=== PATIENT | male | born 1940 | race Caucasian/White ===

== ENCOUNTER 2018-12-02 19:30 | Inpatient (IN) | payer MEDICARE ==
[~2018-12-02] VITALS: Ht 170.2 cm; Wt 93.4 kg
--- NOTE | 2018-12-02 18:50 | NUR ---
PT ARRIVED TO FLOOR VIA EMS. PT VITALS STABLE. PT IN 10/10 PAIN AT BILAT LOWER EXTREMITIES. PT RR EVEN AND UNLABORED. REPORT RECIEVED FROM PERRY YANG. PT SON AT BEDSIDE. BED LOW CALL LIGHT WITHIN REACH. WILL CONTINUE TO MONITOR.
[2018-12-02 20:00] VITALS: BP 109/48
--- NOTE | 2018-12-02 20:06 | NUR ---
CALLED BHASKAR ALARCON FOR ORDERS ON MEDICATION AND INSULIN. LOW RESISTANCE SCALE ORDERED. BED LOW CALL LIGHT WITHIN REACH. WILL CONTINUE TO MONITOR.
[2018-12-02] MEDS ORDERED: RENVELA800 MG PO (20:28)
[2018-12-02] MEDS ORDERED: ENTRESTO 24 MG1 EACH PO (20:28)
[2018-12-02] MEDS ORDERED: GABAPENTIN100 MG PO (20:29)
[2018-12-02] MEDS ORDERED: LIPITOR80 MG (20:31)
[2018-12-02] MEDS ORDERED: PACERONE200 MG (20:32)
[2018-12-02] MEDS ORDERED: NEPHRO-VITE RX1 TAB PO (20:32)
[2018-12-02] MEDS ORDERED: PROTONIX40 MG PO (20:32)
[2018-12-02] MEDS ORDERED: COREG 3.1253.125 MG PO (20:33)
[2018-12-02] MEDS ORDERED: ASPIRIN81 MG PO (20:33)
[2018-12-02] MEDS ORDERED: HUMULIN N100 U/ML SQ (20:35)
[2018-12-02] MEDS ORDERED: HYDROCODON-ACE1 EAC7 PO (20:37)
[2018-12-02] MEDS ORDERED: HYDROCODON-ACE1 EAC2 PO (20:37)
--- NOTE | 2018-12-02 22:58 | NUR ---
PT COMPLAING OF 10/10 PAIN LEFT AND RIGHT FOOT. PT ALERT AND ORIENTED. PT MAKING MOANING SOUNDS. BRD LOW CALL LIGHT WITHIN REACH. WILL CONTINUE TO MONITOR.
--- NOTE | 2018-12-02 23:26 | NUR ---
BASHIR ALARCON Apn CONCERNING PAIN IN PT'S 05/20 PAIN AT BILAT TOE AMPUTATION SITE. NEW PAIN MED ORDERED. SEE OCT.
--- NOTE | 2018-12-02 23:33 | NUR ---
CALLED BHASKAR ALARCON. PT PAIN NOT RELIEVED. NEW PAIN MED ORDER. SEE MAR. WILL CONTINUE TO MONITOR.
[2018-12-03 00:30] VITALS: BP 112/50
--- NOTE | 2018-12-03 02:05 | NUR ---
PT RESTLESS BUT RESTING IN BED. RR EVEN AND UNLABORED. BED LOW CALL LIGHT WITHIN REACH. WILL CONTINUE TO MONITOR.
[2018-12-03 04:14] VITALS: BP 109/48; BMI 33.5
[2018-12-03 04:30] VITALS: BP 129/71
--- NOTE | 2018-12-03 04:51 | NUR ---
REMOVED PT'S DRESSING FROM BILAT FEET. BOTH LEFT AND RIGHT SIDE FEET WHERE TOES AMPUTATED STICHES STILL INTACT. RED, HOT, SWOLLEN, AND NECROTIC IN APPERANCE. THERE IS A FOUL SMELL COMING FROM FEET. PT COMPLAINS OF CONSTANT 9/10, 10/10 PAIN IN LOWER EXTREMITIES. RE-DRESSED WITH NON ADHESIVE XEROFORM WITH 4X4 OVER THAT. THEN WRAPPED WITH CURLEX. WILL CONTINUE TO MONITOR.
--- NOTE | 2018-12-03 05:13 | NUR ---
ADMIT ASSESSMENT COMPLETE. AGREE WITH ASSESSMENT PLACED BY RN
[2018-12-03 05:53] LABS: BASOPHILS 0.2 % (0-2); EOSINOPHILS 1.6 % (0-7); HEMOGLOBIN 8.6 g/dL (13.5-17.5); IMMATURE GRANULOCYTES 0.3 % (0-5); LYMPHOCYTES 9.1 % (15-50); MCHC 31.9 g/dL (31.0-37.0); MCV 87.9 fL (80.0-100.0); NEUTROPHILS 78.8 % (40-80); PLATELET COUNT 255 10x3/uL (130-400); RBC 3.07 10x6/uL (4.20-6.10); RDW 15.2 % (11.5-14.5); WBC 10.3 10x3/uL (4.8-10.8)
--- NOTE | 2018-12-03 07:28 | NUR ---
MORNING ROUNDS MADE. PT LAYING IN BED RESTING. ALERT TO SELF. REORIENTED PT TO PLACE AND TIME. RM AIR. DRSG TO BLE. PT STATED HE NEED THE BEDPAN. ASSISTED PT ONTO BED GASTELUM. IV TO R HAND, 20 G SL. MEPELEX TO BUTTOCKS. DENIES PAIN AT THIS TIME. LUNGS CLEAR. HEART RRR. BED LOWERED AND LOCKED. CL IN REACH. NON SKID SOCKS ON. YELLOW GOWN ON. BED LOWERED AND LOCKED. CL IN REACH. WILL CTM.
[2018-12-03 08:33] VITALS: BP 109/49
[2018-12-03 09:50] LABS: ALBUMIN 1.8 g/dL (3.4-5.0); BILIRUBIN - TOTAL 0.3 mg/dL (0.2-1.3); CALCIUM 9.4 mg/dL (8.5-10.1); CARBON DIOXIDE 21.7 mmol/L (21.0-32.0); CREATININE - SERUM 9.1 mg/dL (0.6-1.3); POTASSIUM - SERUM 4.7 mmol/L (3.5-5.1); PROTEIN - SERUM 6.5 g/dL (6.4-8.2)
--- NOTE | 2018-12-03 09:55 | NUR ---
PT SITTING UP IN BED. VAN STARTED TO IV IN R HAND. DRSG C/D/I. PATENT, NO REDNESS, NO EDEMA. TURNED PT TO L SIDE. PT DENIES PAIN AT THIS TIME. BED LOWERED AND LOCKED. CL IN REACH. WILL CTM.
--- NOTE | 2018-12-03 10:46 | NUR ---
PT C/O PAIN IN FEET OF A 07/20. NORCO GIVEN. PT SAT UP IN HIGH FOWLERS TO TAKE NORCO. NO FURTHER CONCERNS AT THIS TIME. SR UP X 3.
--- NOTE | 2018-12-03 10:48 | NUR ---
PT TO HD VIA BED. IV TO R HAND SL. ORANGE CAP IN PLACE.
--- NOTE | 2018-12-03 12:43 | NUR ---
I CONCUR WITH THE ASSESSMENT PERFORMED BY ALESIA AMADOR
[2018-12-03 13:31] VITALS: Ht 170.2 cm; Wt 93.4 kg
[2018-12-03 15:52] VITALS: BP 95/40
--- NOTE | 2018-12-03 16:28 | NUR ---
PT REFUSES TO WEAR SCD
--- NOTE | 2018-12-03 16:44 | NUR ---
PT GIVEN NORCO FOR PAIN OF 10/10 IN BLE.
--- NOTE | 2018-12-03 17:51 | NUR ---
SPOKE WITH PT SON ABOUT PT STATUS AND CARE TODAY. SON STATED THAT THEY WOULD LIKE TO TAKE PT TO [facility] AFTER DC. NO FURTHER CONCERNS AT THIS TIME. WILL CTM.
[2018-12-03 20:00] VITALS: BP 101/50
--- NOTE | 2018-12-03 21:00 | NUR ---
ROUNDS COMPLETED, VSS, AAOX2. NO S/S OF RR DISTRESS. DRESSING ON R/L TOES C/D/I. PT HAD 1 INCONTINENT BM. HELP CLEAN PT AND PROVIDED FRESH SHEETS. PT CURRENTLY RESTING IN BED. DENIES ANY FURTHER NEEDS AT THIS TIME. WILL CPOC.
[2018-12-04 00:20] VITALS: BP 98/52
--- NOTE | 2018-12-04 04:59 | NUR ---
PT C/O PAIN IN HIS RIGHT AND LEFT TOES. 1 TAB NORCO GIVEN AT THIS TIME. PT RESTING IN BED WITH EYES OPEN. WILL CTM.
[2018-12-04 05:00] VITALS: BP 124/54
[2018-12-04 06:17] LABS: ANION GAP 15.3 mmol/L (8-16); CALCIUM 9.2 mg/dL (8.5-10.1); CARBON DIOXIDE 24.9 mmol/L (21.0-32.0); CREATININE - SERUM 7.9 mg/dL (0.6-1.3); POTASSIUM - SERUM 4.2 mmol/L (3.5-5.1)
[2018-12-04 06:18] LABS: HEMATOCRIT 26.2 % (42.0-54.0); HEMOGLOBIN 8.3 g/dL (13.5-17.5); LYMPHOCYTES 9.5 % (15-50); MCHC 31.7 g/dL (31.0-37.0); MCV 88.5 fL (80.0-100.0); MEAN PLATELET VOLUME 8.8 fL (7.4-10.4); NEUTROPHILS 79.8 % (40-80); PLATELET COUNT 246 10x3/uL (130-400); RBC 2.96 10x6/uL (4.20-6.10); RDW 14.7 % (11.5-14.5); WBC 8.6 10x3/uL (4.8-10.8)
[2018-12-04 09:10] VITALS: BP 130/67
--- NOTE | 2018-12-04 09:59 | NUR ---
UNABLE TO OBTAIN 20 GUAGE PIV FOR CTA AT THIS TIME. WILL TRY AGAIN AND PT REFUSED ANY FURTHER STICKS AFTER 2 ATTEMPTS. BROUGHT PT DOWN TO DIALYSIS VIA BED. NO CURRENT NEEDS WILL CTM.
--- NOTE | 2018-12-04 10:25 | NUR ---
PT IN EXCRUITATING PAIN IN BILAT FEET. PAGED PRIMARY AND OBTAINED PRN PAIN MEDICATION ORDER. WILL BRING DOWN TO DIALYSIS AT THIS TIME.
--- NOTE | 2018-12-04 13:52 | NUR ---
PT BACK FROM DIALYSIS RESTING QUIETLY IN BED. PT REFUSED LUNCH AND STATES HE IS NOT HUNGRY. SON IS AT BEDSIDE AND PROVIDED A LOT OF INFORMATION ABOUT HIS PROCEDURE RECENTLY. OBTAINED CONSENT TO GET RECORDS AND WILL GO FROM THERE. BILAT FEET ARE UNWRAPPED, WOUND CARE NURSE AT BEDSIDE TO ASSESS AND PROVIDE NEW DRSG ORDERS. NO CURRENT NEEDS AT THIS TIME. CL IN REACH, BED IN LOWEST, SIDE RAILS X2. WILL CTM.
--- NOTE | 2018-12-04 14:48 | NUR ---
Nutrition Follow Up: Reviewed chart Renal ADA diet with poor po intake Pt ate 25% of breakfast and it appears pt is not eating lunch BG [address] following
--- NOTE | 2018-12-04 15:12 | NUR ---
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 The sutures are still in place. He has a follow up visit on 12/10/18 for suture removal. Current treatment to the amputation sites and feet is Santyl ointment. Recommend continuing the Santyl. Both feet, amputation sites and toes are black. There is no odor. Pt also has a stage 3 pressure injury on sacrum, measuring 5cm x 3cm. It is covered with yellow slough and the edges are pink. There are 3 small stage 2 pressure injuries on the left side of coccyx. Recommended the use of calmoseptine cream instead of covering ulcers with mepilex due to the high risk of the adhesive in bandage tearing his fragile skin. Also recommend: -Turn/reposition q 2 hours (positioning off his sacrum/coccyx) -Calmoseptine cream to perineal area and to bottom twice/day and with each incontinent episode -Bridge heels off of the mattress/pillows (float them) -Dressing changes every other day to feel/toes -Protect bony prominences -Skin assessments q shift and when providing personal care Wound care will monitor.
--- NOTE | 2018-12-04 15:23 | NUR ---
WOUND CARE NURSE AT BEDSIDE WITH ME TO FULLY ASSESS ALL WOUNDS. PT HAS MULTIPLE STAGE 3 PRESSURE ULCERS ON HIS BOTTOM, SEE WOUND CARE NOTE FOR FURTHER DETAIL. PT INCONTINENT OF BOWEL AND BLADDER, COMPLETE BED CHANGE PROVIDED AND LINENS REPLACED, NEW GOWN PROVIDED. REPOSITIONED PT UP IN BED FOR COMFORT AND TURNED HIM ONTO HIS L.SIDE TO RELIEVE PRESSURE. PT VOICED THANKS AND IS JUST VERY TIRED AND WANTS TO REST. WILL DRESS BILAT FEET INCISIONS WHEN SANTYL OINTMENT IS HERE FROM PHARMACY. NO IMMEDIATE NEEDS AT THIS TIME. CL IN REACH, BED IN LOWEST, SIDE RAILS X2. WILL CTM.
--- NOTE | 2018-12-04 17:01 | NUR ---
STILL WAITING ON SANTYL OINTMENT. PT LYING BACK IN BED RESTING QUIETLY. PT IS STILL NOT HUNGRY AND REFUSED TO EAT ANYTHING SO I HELD HIS INSULIN R/T WORRIED ABOUT HIM DROPPING. FSBS 160. WILL CTM.
[2018-12-04 17:05] VITALS: BP 99/40
--- NOTE | 2018-12-04 17:46 | MORECARE ---
CASE MANAGEMENT DISCHARGE SUMMARY PATIENT: BILL LALA UNIT: [id number] ADM DATE: 12/02/18 AGE: 78 : 39 SEX: M ROOM/BED: D.2138 AUTHOR: DAT MCGUIRE PHYSICIAN: REFERRING PHYSICIAN: EDIS ZHANG MD DATE OF SERVICE: 12/04/18 Discharge Plan Patient Name: BILL LALA [facility] [facility] 1940 Planned Disposition: Assisted Facility Anticipated Discharge Date: Discharge Date: Expected LOS: Initial Reviewer: [id number] Initial Review Date: 12/04/2018 Generated: 12/04/18 6:45 pm DCPIA - Discharge Planning Initial Assessment Updated by [email or web address]: Kvng Wu on 12/04/18 5:43 pm * Is the patient Alert and Oriented? Yes * Preadmission Environment Home with Family * ADLs Partial Dependent * Partial ADLs (Assistance needed) Ambulation Bathing Dressing Medication Management Toileting Transfers * Equipment Wheelchair * Other Equipment NO MEDICAL EQUIPMENT P[ROVIDER PREFERENCE * List name and contact numbers for known caregivers / representatives who currently or will assist patient after discharge: TIANA LALA, SON, PT'S SPOUSE, ED, VEHICLE SERVICE ATTENDANT CARE RESIDENT AT [facility] * Verbal permission to speak to the caregivers and representatives has been obtained from the patient. Yes * Community resources currently utilized None * Please name any agencies selected above. NONE * Additional services required to return to the preadmission environment? Yes * Can the patient safely return to the preadmission environment? No * Has this patient been hospitalized within the prior 30 days at any hospital? Yes Patient Name: BILL LALA Page [id number] at 1746 All edits/amendments must be made on the electronic document DICTATION DATE: 12/04/181744 MECHANICAL EQUIPMENT SALES ENGINEER: PIERRE 12/04/181744 RPT#: [id number] DC DATE: STATUS: ADM IN [facility] [address] [place] [address] END OF REPORT
--- NOTE | 2018-12-04 17:54 | MORECARE ---
CASE MANAGEMENT DISCHARGE SUMMARY PATIENT: BILL LALA UNIT: [id number] ADM DATE: 12/02/18 AGE: 78 : 39 SEX: M ROOM/BED: D.9428 AUTHOR: SHAYLA,DOC PHYSICIAN: REFERRING PHYSICIAN: EDIS ZHANG MD DATE OF SERVICE: 12/04/18 Discharge Plan Patient Name: BILL LALA Facility: [facility]:[place] : 1940 Planned Disposition: Mcfp Facility Anticipated Discharge Date: Discharge Date: Expected LOS: Initial Reviewer: [email or web address] Initial Review Date: 12/04/2018 Generated: 12/04/18 6:54 pm Comments DCP- Discharge Planning Updated by [email or web address]: Kvng Wu on 12/04/18 4:[address] Patient Name: BILL LALA Admission Status: Elective Accout number: [id number] Admission Date: 12-02-2018 : 1940 Admission Diagnosis: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 CM MET WITH PT IN ROOM TO DISCUSS DISCHARGE PLANNING AND NEEDS. PT REPORTS HE WAS LIVING AT HOME WITH FAMILY. PT STATES HIS IS IN COUNTY SHERIFF CARE AT [facility]. PT WANTS TO GO TO [facility] AND WILL HOPEFULLY GET A ROOM WITH HIS THERE. PT IS ON DIALYSIS ALREADY AT [facility], MWF, 1015, FAMILY HAS BEEN TRANSPORTING. PROVIDER LIST GIVEN, PT IS UNABLE TO SIGN CHOICE LETTER, COMPLETED BY CM FOR [facility]. CM CALLED AND LEFT MESSAGE FOR NICOLE OF [facility], ; FIFTH GRADE TEACHER REPORTED THEY HAVE BEEN CONSIDERING PT AND HAD RECEIVED REHAB REFERRAL FROM [facility]. CM FAXED REFERRAL TO [facility] AT [phone]. CM LATER MET PT'S SON IN ROOM, TIANA LALA, WHO VERIFIED PLAN FOR PT TO GO TO REHAB AT [facility], TRANSITION TO RETIREMENT CARE PT'S SPOUSE LIVES IN FACILITY. CM WAITING ADMISSION DETERMINATION FROM [facility] FOR REHAB PLACEMENT. Nuclear Medicine Physician: Kvng Wu DCPIA - Discharge Planning Initial Assessment Updated by [id number]: Kvng Wu on 12/04/18 5:49 pm * Is the patient Alert and Oriented? Yes * Preadmission Environment Home with Family * ADLs Partial Dependent * Partial ADLs (Assistance needed) Ambulation Bathing Dressing Medication Management Toileting Transfers * Equipment Wheelchair * Other Equipment NO MEDICAL EQUIPMENT P[ROVIDER PREFERENCE * List name and contact numbers for known caregivers / representatives who currently or will assist patient after discharge: TIANA LALA, SON, PT'S SPOUSE, ED, COUNTY SHERIFF CARE RESIDENT AT [facility] * Verbal permission to speak to the caregivers and representatives has been obtained from the patient. Yes * Community resources currently utilized Other * Please name any agencies selected above. OUTPATIENT DIALYSIS, [facility], MWF, 1015 HOURS. * Additional services required to return to the preadmission environment? Yes * Can the patient safely return to the preadmission environment? No * Has this patient been hospitalized within the prior 30 days at any hospital? Yes External Providers [facility] Next Contact Date: 12/04/2018 Service Request Date: Service Type: Resolution: Reviewer: Comments: Last DP export: 12/04/18 4:45 p Patient Name: BILL LALA Page [phone] at 1754 All edits/amendments must be made on the electronic document DICTATION DATE: 12/04/181752 PRINCIPAL ELECTRICAL ENGINEER: PIERRE 12/04/181752 RPT#: [id number] DC DATE: STATUS: ADM IN [facility] [address] [place] [address] END OF REPORT
[2018-12-04 20:00] VITALS: BP 97/48
--- NOTE | 2018-12-04 20:20 | NUR ---
PT LAYING IN BED RESTING. RR EVEN AND UNLABORED. BED LOW CALL LIGHT WITHIN REACH. WILL CONTINUE TO MONITOR.
--- NOTE | 2018-12-04 23:51 | NUR ---
PT RESTING ON SIDE IN BED. RR EVEN AND UNLABORED. BED LOW CALL LIGHT WITHIN REACH. WILL CONTINUE TO MONITOR.
--- NOTE | 2018-12-05 01:59 | NUR ---
PT MOANING AND COMPLAING OF 10/10 PAIN. PRN PAIN MED GIVED. FEET ELEVATED ON PILLOWS. BED LOW CALL LIGHT WITHIN REACH. WILL CONTINUE TO MONITOR.
[2018-12-05 05:35] LABS: BASOPHILS 0.1 % (0-2); EOSINOPHILS 0.8 % (0-7); HEMATOCRIT 25.7 % (42.0-54.0); HEMOGLOBIN 7.9 g/dL (13.5-17.5); IMMATURE GRANULOCYTES 0.2 % (0-5); LYMPHOCYTES 8.5 % (15-50); MCH 27.1 pg (26.0-34.0); MCHC 30.7 g/dL (31.0-37.0); MEAN PLATELET VOLUME 8.7 fL (7.4-10.4); MONOCYTES 8.1 % (2-11); NEUTROPHILS 82.3 % (40-80); PLATELET COUNT 204 10x3/uL (130-400); RBC 2.92 10x6/uL (4.20-6.10); RDW 15.2 % (11.5-14.5); WBC 10.3 10x3/uL (4.8-10.8)
[2018-12-05 06:00] LABS: ANION GAP 16.7 mmol/L (8-16); CALCIUM 9.4 mg/dL (8.5-10.1); CARBON DIOXIDE 24.4 mmol/L (21.0-32.0); CREATININE - SERUM 6.6 mg/dL (0.6-1.3); PHOSPHOROUS 6.3 mg/dL (2.5-4.9); POTASSIUM - SERUM 4.1 mmol/L (3.5-5.1); VANCOMYCIN - RANDOM 7.6 ug/mL (10.0-20.0)
[2018-12-05 09:08] VITALS: BP 90/37
--- NOTE | 2018-12-05 10:21 | NUR ---
DR. GLOVER CANCELED CT SCAN FOR TODAY AND IS GOING TO DO IT TOMORROW SINCE PT IS GETTING IV CONTRAST AND WILL HAVE HD FRIDAY.
[2018-12-05 11:31] VITALS: BP 102/55
--- NOTE | 2018-12-05 11:45 | NUR ---
PT RECEVIED BED BATH BY BOOKBINDER CHIEF. CALMOSEPTINE AND MEPILEX PLACED ON PT'S BUTTOCK.
--- NOTE | 2018-12-05 14:19 | NUR ---
I have reviewed this patient and I concur with the Shift Assessment completed by the Licensed Practical Nurse today this shift.
--- NOTE | 2018-12-05 14:27 | NUR ---
PT LYING IN BED. EYES CLOSED. CHEST RISING AND FALLING. BED LOW. CL IN REACH.
[2018-12-05 15:30] VITALS: BP 93/44
--- NOTE | 2018-12-05 19:20 | NUR ---
PT IN BED RESTING. EVEN AND UNLABORED RESPIRATIONS NOTED.
[2018-12-05 20:00] VITALS: BP 93/48
[2018-12-06] VITALS: BP 92/39
[2018-12-06 03:00] VITALS: BP 93/55
--- NOTE | 2018-12-06 03:02 | NUR ---
I have reviewed this patient and I concur with the Shift Assessment completed by the Licensed Practical Nurse today this shift.
--- NOTE | 2018-12-06 03:55 | NUR ---
COMPLETE LINEN CHANGE AT THIS TIME.
[2018-12-06 05:26] LABS: BASOPHILS 0.3 % (0-2); EOSINOPHILS 3.7 % (0-7); HEMATOCRIT 26.7 % (42.0-54.0); HEMOGLOBIN 8.2 g/dL (13.5-17.5); IMMATURE GRANULOCYTES 0.3 % (0-5); LYMPHOCYTES 9.4 % (15-50); MCHC 30.7 g/dL (31.0-37.0); MCV 87.8 fL (80.0-100.0); MONOCYTES 8.5 % (2-11); NEUTROPHILS 77.8 % (40-80); PLATELET COUNT 228 10x3/uL (130-400); RBC 3.04 10x6/uL (4.20-6.10); RDW 15.3 % (11.5-14.5); WBC 9.3 10x3/uL (4.8-10.8)
[2018-12-06 05:43] LABS: ANION GAP 16.6 mmol/L (8-16); CALCIUM 9.3 mg/dL (8.5-10.1); CARBON DIOXIDE 26.4 mmol/L (21.0-32.0); CREATININE - SERUM 7.7 mg/dL (0.6-1.3)
--- NOTE | 2018-12-06 07:00 | NUR ---
RECEIVED REPORT. ASSUMED CARE OF PATIENT. RESTING WITH EYES CLOSED. EASILTY AROUSED. RESP EVEN AND UNLABORED. NO DISTRESS. CALL LIGHT WITHIN REACH.
--- NOTE | 2018-12-06 07:52 | NUR ---
PATIENT LEFT UNIT VIA BED FOR CTA OF LOWER EXTREMITIES AT 0745. NO DISTRESS UPON LEAVING UNIT.
--- NOTE | 2018-12-06 08:10 | NUR ---
PATIENT RETURNED TO UNIT VIA BED FROM CTA OF LOWER EXTREMITIES. NO DISTRESS. TOLERATED CTA WELL PER BOTTOM FINISHER.
[2018-12-06 08:32] VITALS: BP 102/50
--- NOTE | 2018-12-06 11:31 | NUR ---
FSBS 172. 2 UNITS HUMULIN ADMINISTERED PER SLIDING SCALE. NO DISTRESS. TURNED AND REPOSITIONED. CALL LIGHT WITHIN REACH.
--- NOTE | 2018-12-06 11:35 | NUR ---
MEDICATED FOR FOOT PAIN. NO DISTRESS.
[2018-12-06 12:27] VITALS: BP 145/69
--- NOTE | 2018-12-06 14:58 | NUR ---
WOUND CARE TO COCCYX COMPLETE. DRY DRESSING NOW INTACT. COMPLETE LINEN CHANGE AND PATIENT REPOSITIONED. NO DISTRESS. PATIENT NOW HAS VISITORS AT BEDSIDE.
[2018-12-06 15:58] VITALS: BP 126/51
--- NOTE | 2018-12-06 16:30 | NUR ---
FSBS 134. NO INSULIN ADMINISTERED PER SLIDING SCALE.
--- NOTE | 2018-12-06 19:11 | NUR ---
AWAKE IN BED AND I ASSISTED WITH COMFORT AND PROPPED LOWER EXTREMITIES ON PILLOWS. YELLOW GOWN IN PLACE AND BED IS LOW AND LOCKED PUT CALL LIGHT BACK IN REACH. LCTA AND IV X2 WNL...DRSG IS INTACT ON BOTH FEET WHERE TOES ARE MISSING
[2018-12-06 20:26] VITALS: BP 108/67
--- NOTE | 2018-12-07 01:04 | NUR ---
DRSG CHANGE TO SACREAL AREA DO TO SOILED BANDAGE
[2018-12-07 01:17] VITALS: BP 99/67
--- NOTE | 2018-12-07 03:19 | NUR ---
I have reviewed this patient and I concur with the Shift Assessment completed by the Licensed Practical Nurse today this shift.
[2018-12-07 04:45] LABS: BASOPHILS 0.2 % (0-2); EOSINOPHILS 3.5 % (0-7); HEMATOCRIT 25.4 % (42.0-54.0); HEMOGLOBIN 7.9 g/dL (13.5-17.5); IMMATURE GRANULOCYTES 0.2 % (0-5); LYMPHOCYTES 10.2 % (15-50); MCH 27.1 pg (26.0-34.0); MCHC 31.1 g/dL (31.0-37.0); MCV 87.3 fL (80.0-100.0); MEAN PLATELET VOLUME 8.9 fL (7.4-10.4); MONOCYTES 9.3 % (2-11); NEUTROPHILS 76.6 % (40-80); PLATELET COUNT 240 10x3/uL (130-400); RBC 2.91 10x6/uL (4.20-6.10); RDW 15.4 % (11.5-14.5); WBC 10.9 10x3/uL (4.8-10.8)
[2018-12-07 04:51] LABS: ANION GAP 14.7 mmol/L (8-16); CALCIUM 9.4 mg/dL (8.5-10.1); CARBON DIOXIDE 26.6 mmol/L (21.0-32.0); CREATININE - SERUM 8.6 mg/dL (0.6-1.3); POTASSIUM - SERUM 4.3 mmol/L (3.5-5.1); VANCOMYCIN - RANDOM 6.7 ug/mL (10.0-20.0)
[2018-12-07 05:55] VITALS: BP 103/50
[2018-12-07 08:04] LABS: INR 1.21 (0.85-1.17); PROTIME 14.8 SECONDS (11.6-15.0)
[2018-12-07 08:08] VITALS: BP 113/69
--- NOTE | 2018-12-07 10:34 | NUR ---
RECEIVED CALL FROM PATIENT'S SON TIANA LALA. EXPLAINED THAT AN ARTERIOGRAM HAD BEEN ORDERED HE STATES THERE WILL BE NO PROCEDURE CONCERNING PT'S LEGS IF HE NEEDS FURTHER SERVICES CONCERNING THIS HE WILL TAKE PT BACK TO [place] PT'S PRIMARY NURSE AND RADIOLOGY NOTIFIED
[2018-12-07 12:08] VITALS: BP 99/51
[2018-12-07 22:04] VITALS: BP 99/42
[2018-12-08 00:04] VITALS: BP 91/40
--- NOTE | 2018-12-08 04:28 | NUR ---
I have reviewed this patient and I concur with the Shift Assessment completed by the Licensed Practical Nurse today this shift.
[2018-12-08 05:44] LABS: BASOPHILS 0.2 % (0-2); EOSINOPHILS 1.8 % (0-7); HEMATOCRIT 26.6 % (42.0-54.0); HEMOGLOBIN 8.2 g/dL (13.5-17.5); IMMATURE GRANULOCYTES 0.3 % (0-5); LYMPHOCYTES 9.9 % (15-50); MCH 27.1 pg (26.0-34.0); MCHC 30.8 g/dL (31.0-37.0); MCV 87.8 fL (80.0-100.0); MEAN PLATELET VOLUME 8.9 fL (7.4-10.4); MONOCYTES 10.3 % (2-11); NEUTROPHILS 77.5 % (40-80); PLATELET COUNT 263 10x3/uL (130-400); RBC 3.03 10x6/uL (4.20-6.10); RDW 15.5 % (11.5-14.5); WBC 10.9 10x3/uL (4.8-10.8)
[2018-12-08 05:55] VITALS: BP 114/64
[2018-12-08 06:42] LABS: ANION GAP 20.6 mmol/L (8-16); CALCIUM 9.3 mg/dL (8.5-10.1); CARBON DIOXIDE 23.4 mmol/L (21.0-32.0); PHOSPHOROUS 5.6 mg/dL (2.5-4.9)
[2018-12-08 06:45] LABS: CREATININE - SERUM 6.1 mg/dL (0.6-1.3)
--- NOTE | 2018-12-08 07:16 | NUR ---
FSBS 200 7 UNITS OF NPH GIVEN PER SS. 2 UNITS OF REGULAR GIVEN PER SS.
[2018-12-08 07:42] VITALS: BP 125/63
--- NOTE | 2018-12-08 08:57 | NUR ---
PULLED PATIENT UP AGAIN IN BED, CONTINUES TO SCOOT HIMSELF DOWN IN BED. AM MEAL SETUP FOR PATIENT. ENCOURAGED PATEINT TO EAT. CALL LIGHT WITHIN REACH. NO DISTRESS.
[2018-12-08] MEDS ORDERED: HUMULIN N100 U/ML SC (09:09)
[2018-12-08] MEDS ORDERED: HUMULIN R100 U/ML SC (09:09)
[2018-12-08] MEDS ORDERED: SANTYL30 GM TOPICAL (09:10)
[2018-12-08] MEDS ORDERED: CALMOSEPTINE OI71 GM TOPICAL (09:10)
[2018-12-08] MEDS ORDERED: FLORAJEN3 CAPS460 MG PO (09:10)
[2018-12-08] MEDS ORDERED: MIDODRINE HCL2.5 MG PO (09:11)
[2018-12-08] MEDS ORDERED: Retacrit SC (09:11)
[2018-12-08 10:14] LABS: FOLATE (FOLIC ACID) - SERUM >20.0 ng/mL (>3.0)
--- NOTE | 2018-12-08 10:58 | MORECARE ---
CASE MANAGEMENT DISCHARGE SUMMARY PATIENT: BILL LALA UNIT: [id number] ADM DATE: 12/02/18 AGE: 78 : 39 SEX: M ROOM/BED: D.2298 AUTHOR: DAT MCGUIRE PHYSICIAN: REFERRING PHYSICIAN: EDIS ZHANG MD DATE OF SERVICE: 12/08/18 Discharge Plan Patient Name: BILL LALA Facility: [facility]:[place] : 1940 Planned Disposition: Home Anticipated Discharge Date: 12/08/18 Discharge Date: Expected LOS: 6 Initial Reviewer: [id number] Initial Review Date: 12/04/2018 Generated: 12/08/18 11:57 am Comments DCP- Discharge Planning Updated by [email or web address]: Kvng Wu on 12/04/18 4:[address] Patient Name: BILL LALA Admission Status: Elective Accout number: [id number] Admission Date: 12-02-2018 : 1940 Admission Diagnosis: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 CM MET WITH PT IN ROOM TO DISCUSS DISCHARGE PLANNING AND NEEDS. PT REPORTS HE WAS LIVING AT HOME WITH FAMILY. PT STATES HIS IS IN RETIREMENT CARE AT [facility]. PT WANTS TO GO TO [facility] AND WILL HOPEFULLY GET A ROOM WITH HIS THERE. PT IS ON DIALYSIS ALREADY AT [facility], MWF, 1015, FAMILY HAS BEEN TRANSPORTING. PROVIDER LIST GIVEN, PT IS UNABLE TO SIGN CHOICE LETTER, COMPLETED BY CM FOR [facility]. CM CALLED AND LEFT MESSAGE FOR NICOLE OF [facility], ; SUSPENDER MAKER REPORTED THEY HAVE BEEN CONSIDERING PT AND HAD RECEIVED REHAB REFERRAL FROM [facility], [place]. CM FAXED REFERRAL TO [facility] AT [phone]. CM LATER MET PT'S SON IN ROOM, TIANA LALA, WHO VERIFIED PLAN FOR PT TO GO TO REHAB AT [facility], TRANSITION TO RETIREMENT CARE PT'S SPOUSE LIVES IN FACILITY. CM WAITING ADMISSION DETERMINATION FROM [facility] FOR REHAB PLACEMENT. Fishing Tackle Repairer: Kvng Wu DCPIA - Discharge Planning Initial Assessment Updated by RYLEY: Kvng Wu on 12/04/18 5:49 pm * Is the patient Alert and Oriented? Yes * Preadmission Environment Home with Family * ADLs Partial Dependent * Partial ADLs (Assistance needed) Ambulation Bathing Dressing Medication Management Toileting Transfers * Equipment Wheelchair * Other Equipment NO MEDICAL EQUIPMENT P[ROVIDER PREFERENCE * List name and contact numbers for known caregivers / representatives who currently or will assist patient after discharge: TIANA LALA, SON, PT'S SPOUSE, ED, RETIREMENT CARE RESIDENT AT [facility] * Verbal permission to speak to the caregivers and representatives has been obtained from the patient. Yes * Community resources currently utilized Other * Please name any agencies selected above. OUTPATIENT DIALYSIS, [facility], MWF, 1015 HOURS. * Additional services required to return to the preadmission environment? Yes * Can the patient safely return to the preadmission environment? No * Has this patient been hospitalized within the prior 30 days at any hospital? Yes Coverage Notice Reviewer: [email or web address] Alberto Wu Notice Issued Date-Time: 12/04/2018 13:00 Notice Type: Patient Choice Letter Notice Delivered To: Patient Relationship to Patient: Adz Worker Name: Delivery Method: HAND - Hand Delivered Faby Days: Prior Verbal Notification: Recipient Understood Notice: Yes Recipient Signature: Med Rec Note Co-signed by Attending: Coverage Notice Comment: [facility] Reviewer: [id number] Alberto Wu Notice Issued Date-Time: 12/08/2018 9:45 Notice Type: IM Discharge Notice Notice Delivered To: Patient Relationship to Patient: Adz Worker Name: Delivery Method: HAND - Hand Delivered Faby Days: Prior Verbal Notification: Recipient Understood Notice: Yes Recipient Signature: Med Rec Note Co-signed by Attending: Coverage Notice Comment: Last DP export: 12/04/18 4:54 p Patient Name: BILL LALA Page [phone] at 1058 All edits/amendments must be made on the electronic document DICTATION DATE: 12/08/18 1054 SPRING MACHINE OPERATOR: PIERRE 12/08/18 105 RPT#: [id number] DC DATE: STATUS: ADM IN [facility] [address] [place] [address] END OF REPORT
--- NOTE | 2018-12-08 11:06 | MORECARE ---
CASE MANAGEMENT DISCHARGE SUMMARY PATIENT: BILL LALA UNIT: [id number] ADM DATE: 12/02/18 AGE: 78 : 38 SEX: M ROOM/BED: D.2138 AUTHOR: DAT MCGUIRE PHYSICIAN: REFERRING PHYSICIAN: EDIS ZHANG MD DATE OF SERVICE: 12/08/18 Discharge Plan Patient Name: BILL LALA Facility: [facility]:[place] : 1940 Planned Disposition: Home Anticipated Discharge Date: 12/08/18 Discharge Date: Expected LOS: 6 Initial Reviewer: [email or web address] Initial Review Date: 12/04/2018 Generated: 12/08/18 12:05 pm Comments DCP- Discharge Planning Updated by [id number]: Kvng Umaña on 12/08/18 10:[address] Patient Name: BILL LALA Encounter No: [id number] : 1940 Primary Insurance: MEDICARE A & B Anticipated DC Date: 12-08-2018 Planned Disposition: Home DCP follow-up note: CM SPOKE TO RN CM HOUSE WHO ADVISED THAT PT'S FAMILY REQUESTED DISCHARGE HOME TODAY AND ARE MAKING PRIVATE ARRANGEMENTS FOR AMBULANCE TRANSPORTATION. CM RECEIVED CALL FROM TIANA LALA, PT'S SON, WHO STATED HE CALLED HOSPITAL IN [place], [place] AND THEY TOLD HIM THAT CM SHOULD BE ABLE TO ARRANGE AMBUALANCE TRANSPORT FOR INSURANCE TO COVER THE COSTS TO GET PT BACK TO [place]. CM EXPLAINED THAT THE DOCTOR HAS DISCHARGED PT HOME, THERE IS NO MEDICAL REASON FOR HOSPITAL TRANSFER DUE TO SERVICES BEING AVAILABLE HERE; CM EXPLAINED THAT ANY TRANSPORTATION ARRANGEMENTS WILL NEED TO BE ARRANGED AND PAID FOR BY FAMILY. TIANA REPORTS UNDERSTANDING AND THAT HE WOULD TAKE CARE OF IT. CM PROVIDED PT WITH IMPORTANT MESSAGE FROM MEDICARE. FLOOR WORKER WELL SERVICE NURSE NOTIFIED. 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 CM MET WITH PT IN ROOM TO DISCUSS DISCHARGE PLANNING AND NEEDS. PT REPORTS HE WAS LIVING AT HOME WITH FAMILY. PT STATES HIS IS IN LONG-TERM CARE AT [facility]. PT WANTS TO GO TO [facility] AND WILL HOPEFULLY GET A ROOM WITH HIS THERE. PT IS ON DIALYSIS ALREADY AT [facility], MWF, 1015, FAMILY HAS BEEN TRANSPORTING. PROVIDER LIST GIVEN, PT IS UNABLE TO SIGN CHOICE LETTER, COMPLETED BY CM FOR [facility]. CM CALLED AND LEFT MESSAGE FOR NICOLE OF [facility], ; CONVEX GRINDER OPERATOR REPORTED THEY HAVE BEEN CONSIDERING PT AND HAD RECEIVED REHAB REFERRAL FROM [facility]. CM FAXED REFERRAL TO [facility] AT [phone]. CM LATER MET PT'S SON IN ROOM, TIANA LALA, WHO VERIFIED PLAN FOR PT TO GO TO REHAB AT [facility], TRANSITION TO DUMPER BAILER OPERATOR CARE PT'S SPOUSE LIVES IN FACILITY. CM WAITING ADMISSION DETERMINATION FROM [facility]. Refrigeration Engine Operator: Kvng Umaña DCPIA - Discharge Planning Initial Assessment Updated by [id number]: Kvng Umaña on 12/04/18 5:49 pm * Is the patient Alert and Oriented? Yes * Preadmission Environment Home with Family * ADLs Partial Dependent * Partial ADLs (Assistance needed) Ambulation Bathing Dressing Medication Management Toileting Transfers * Equipment Wheelchair * Other Equipment NO MEDICAL EQUIPMENT P[ROVIDER PREFERENCE * List name and contact numbers for known caregivers / representatives who currently or will assist patient after discharge: TIANA LALA, SON, PT'S SPOUSE, ED, DUMPER BAILER OPERATOR CARE RESIDENT AT [facility] * Verbal permission to speak to the caregivers and representatives has been obtained from the patient. Yes * Community resources currently utilized Other * Please name any agencies selected above. OUTPATIENT DIALYSIS, [facility], MWF, 1015 HOURS. * Additional services required to return to the preadmission environment? Yes * Can the patient safely return to the preadmission environment? No * Has this patient been hospitalized within the prior 30 days at any hospital? Yes Coverage Notice Reviewer: [id number] - Kvng Umaña Notice Issued Date-Time: 12/04/2018 13:00 Notice Type: Patient Choice Letter Notice Delivered To: Patient Relationship to Patient: Senior Director Of Strategy Name: Delivery Method: HAND - Hand Delivered Faby Days: Prior Verbal Notification: Recipient Understood Notice: Yes Recipient Signature: Med Rec Note Co-signed by Attending: Coverage Notice Comment: KELSI GUPTA Reviewer: [email or web address] Alberto Umaña Notice Issued Date-Time: 12/08/2018 9:45 Notice Type: IM Discharge Notice Notice Delivered To: Patient Relationship to Patient: Senior Director Of Strategy Name: Delivery Method: HAND - Hand Delivered Faby Days: Prior Verbal Notification: Recipient Understood Notice: Yes Recipient Signature: Med Rec Note Co-signed by Attending: Coverage Notice Comment: Last DP export: 12/08/18 9:57 a Patient Name: BILL LALA Page [id number] at 1106 All edits/amendments must be made on the electronic document DICTATION DATE: 12/08/181104 VENDING MACHINE COIN COLLECTOR: PIERRE 12/08/18 1105 RPT#: [id number] DC DATE: STATUS: ADM IN [facility] [address] [place] [address] END OF REPORT
[2018-12-08 11:25] VITALS: BP 133/68
--- NOTE | 2018-12-08 11:34 | NUR ---
FSBS 151. 2 UNITS HUMULIN ADMINISTERED PER SLIDING SCALE.
--- NOTE | 2018-12-08 12:07 | NUR ---
CALLED AND SPOKE TO PATIENTS SON, TIANA, TO LET HIM KNOW THAT WE HAVE EVERYTHING READY FOR THE PATIENTS DISCHARGE. MARGARITA SON STATES THAT HE WENT TO GET THE [email or web address] VAN AND SOMEONE LET THE VAN GO AND NOW HE IS TRYING 3 OTHER COMPANIES. IF UNABLE TO GET A VAN TO GET HIS DAD TODAY, PATIENT WILL NEED TO BE SENT TO HOME VIA AMBULANCE AND PATIENTS SON WILL FIGURE OUT HOW TO GET HIM TO [facility]. PATIENTS SON ASKED THIS HORSEBACK RIDING INSTRUCTOR IF I COULD ARRANGE HIM TO GO TO [facility], THIS HORSEBACK RIDING INSTRUCTOR STATED NO AND THAT HE HAS ALREADY SPOKE WITH CASE MANAGEMENT ABOUT THAT. TOLD PATIENTS SON THAT I WOULD GIVE HIM AN HOUR OR SO AND CALL HIM BACK IF THIS HORSEBACK RIDING INSTRUCTOR HAD NO HEARD FROM HIM IN REGARDS TO TRANSPORTATION FOR THE PATIENT.
--- NOTE | 2018-12-08 12:27 | NUR ---
PATIENTS SON CALLED BACK AND HAS FOUND A VAN. PATIENTS SON SHOULD BE HERE BY 3PM TO PICK PATIENT UP.
--- NOTE | 2018-12-08 15:37 | NUR ---
WOUND CARE TO COCCYX PROVIDED AT THIS TIME. INCONTINENT CARE PROVIDED. CLEAN BLANKET APPLIED.
--- NOTE | 2018-12-08 17:10 | NUR ---
1625 20 GUAGE IV REMOVED FROM RIGHT FOREARM. NO BLEEDING FROM SITE. CATHETER TIP INTACT. 20 GAUGE IV REMOVED FROM RIGHT HAND. CATHETER TIP INTACT. NO BLEEDING. 2X2 GAUZE APPLIED AND SECURED WITH BANDAID. 1625 DISCHARGE INSTRUCTIONS PROVIDED TO PATIENT AND HIS FAMILY. PATIENT IS DISCHARGING TO ANOTHER FACILITY IN [facility] WITH FAMILY. PATIENTS FAMILY AND PATIENT VERBALIZED UNDERSTANDING OF INSTRUCTIONS PROVIDED. 1635 PATIENT LEFT UNIT VIA PERSONAL WHEELCHAIR WITH HIS SON AND GRANDDAUGHTER. PATIENT LEFT UNIT WITH ALL PERSONAL BELONGINGS. PATIENT IN NO DISTRESS UPON LEAVING UNIT.
== END 2018-12-08 16:35 | disposition home or self-care (01) | DRG 299 ==
LOC: D.M2 19:30
PROVIDERS: Internal Medicine Nephrology; Radiology Diagnostic Radiology; ADMIT Internal Medicine Nephrology; ATTEND Internal Medicine Nephrology
DX: E11.51 Type 2 diabetes mellitus with diabetic peripheral angiopathy without gangrene (principal); N18.6 End stage renal disease; I13.2 Hypertensive heart and chronic kidney disease with heart failure and with stage 5 chronic kidney disease, or end stage renal disease; I50.9 Heart failure, unspecified; E11.22 Type 2 diabetes mellitus with diabetic chronic kidney disease; Z99.2 Dependence on renal dialysis; I48.91 Unspecified atrial fibrillation; Z86.73 Personal history of transient ischemic attack (TIA), and cerebral infarction without residual deficits